=== PATIENT | male | born 1960 | race Asian ===

== ENCOUNTER 2019-11-10 17:06 | Inpatient (IN) | payer SELFPAY ==
[~2019-11-10] VITALS: Ht 175.3 cm; Wt 57.3 kg
[2019-11-10 17:22] VITALS: Ht 175.3 cm; Wt 57.3 kg
--- NOTE | 2019-11-10 21:05 | NUR ---
PT OFF OF UNIT TO CT SCAN.
[2019-11-10 21:15] LABS: PLATELET COUNT 133 x10^3mcL (130-400); RED CELL DISTRIBUTION WIDTH 12.7 % (11.5-14.5)
--- NOTE | 2019-11-10 21:15 | NUR ---
PT LYING IN BED, AAOX4 WITH C/O 4/10 GENERALIZED ABD PAIN WITH N/V X 1 DAY. PT DENIES ANY DIARRHEA/CONSTIPATION, FEVER, OR URINARY PROBLEMS AT THIS TIME. NO SIGNS OF DISTRESS.
[2019-11-10 21:17] LABS: BASOPHIL % 0 % (0-2)
[2019-11-10 21:23] LABS: CALCIUM 8.3 mg/dL (8.5-10.1); CARBON DIOXIDE 28.5 mmol/L (21-32); CHLORIDE SERUM 98 mmol/L (98-107); CREATININE SERUM 0.8 mg/dL (0.7-1.3); GFR1 > 60 mL/min; GLUCOSE SERUM 113 mg/dL (74-106); POTASSIUM SERUM 3.8 mmol/L (3.5-5.1); SODIUM SERUM 132 mmol/L (136-145)
[2019-11-10 21:27] LABS: ALBUMIN 3.5 g/dL (3.4-5.0); ALKALINE PHOSPHATASE 69 U/L (46-116); ALT/SGPT 33 U/L (16-63); AST/SGOT 22 U/L (15-37); LIPASE 74 IU/L (73-393)
--- NOTE | 2019-11-10 22:30 | NUR ---
PT ASSISTED TO [facility] FOR TRANSPORT TO [place].
[2019-11-10 22:33] LABS: microscopic required? NO
[2019-11-10 23:11] LABS: UA SPECIFIC GRAVITY <=1.005 (1.005-1.035); urine erythrocyte NEGATIVE (NEGATIVE)
[2019-11-10 23:34] LABS: AMPHETAMINE QUAL UR NONE DETECTED (See below)
[2019-11-10 23:42] VITALS: BP 124/100
--- NOTE | 2019-11-11 00:37 | NUR ---
RECEIVED REPORT FROM RECOVER NURSE. AWAITING PTS ARRIVAL.
--- NOTE | 2019-11-11 00:47 | NUR ---
RECEIVED PT FROM PACU, S/P LAPAROSCOPIC APPENDECTOMY. RECEIVED PT DROWSY BUT AROUSABLE W/ VERBAL STIMULI. ORIENTED X4. DENIES HEADACHE/DIZZINESS. ABLE TO FOLLOW COMMANDS. NO SOB NOTED, LUNG SOUNDS CTA, 02 SAT=98% ON 2LPM/NC. DENIES CHEST PAIN/PRESSURE. STATED THAT HE HAS 6/10 ABDOMINAL PAIN. DENIES NAUSEA/VOMITING. ABDOMEN IS SOFT. PT STATED THAT HE HAS MILD DIFFICULTY URINATING, DENIES DYSURIA. W/ 3 SURGICAL INCISIONS ON THE ABDOMEN, W/ DERMABONDS, CDI. IV SITE PATENT AND INTACT. TEMP-100.4. COOLING MEASURES INITIATED. PT'S FRIEND AT BEDSIDE. SIDE RAILS UPX2. CALL LIGHT ON REACH. ENDORSED TO PRIMARY NURSE LAI FOR CONTINUITY OF CARE
--- NOTE | 2019-11-11 00:50 | NUR ---
RECEIVED PT FROM CHATO ALMEIDA. PT IS DROWSY, BUT EASILY AROUSABLE. MANDARIN SPEAKING. ABLE TO MAKE NEEDS KNOWN AND FOLLOW COMMANDS. ORIENTED PT TO ROOM AND SURROUNDINGS. BED IN LOWEST POSITION. CALL LIGHT WITHIN REACH. WILL CONTINUE TO MONITOR.
[2019-11-11 00:55] VITALS: BP 119/73
--- NOTE | 2019-11-11 01:14 | NUR ---
TYLENOL ADMINISTERED FOR TEMP OF 100.4. WILL REASSESS AND CHECK EFFECTIVENESS.
--- NOTE | 2019-11-11 03:37 | NUR ---
PT RESTING COMFORTABLY IN BED, BUT EASILY AROUSABLE WHEN SPOKEN TO. PT C/O 05/16 PAIN ON ABD. WILL MEDICATE ACCORDINGLY PER DEC ORDER. BREATHING IS EVEN AND UNLABORED ON 2LNC. NO RESP DISTRESS NOTED. BED IN LOWEST POSITION. CALL LIGHT WITHIN REACH. WILL CONTINUE TO MONITOR.
[2019-11-11 05:26] VITALS: BP 98/54
--- NOTE | 2019-11-11 06:22 | NUR ---
DR LAUED IN TO SEE PT. PT HAD NO URINE OUTPUT SINCE BROUGHT UP FROM RECOVERY ROOM. PER DR ROMO PERFORM BLADDER SCAN TO DETERMINE URINE RETENTION. WILL CARRY OUT ORDERS.
[2019-11-11 06:35] LABS: RED CELL DISTRIBUTION WIDTH 12.8 % (11.5-14.5)
--- NOTE | 2019-11-11 06:49 | NUR ---
BLADDER SCAN DONE, 700+ML RETAINED. PAGED DR ROMO. AWAITING ORDERS. WILL MAKE DAY SHIFT NURSE AWARE.
--- NOTE | 2019-11-11 06:58 | NUR ---
PT SLEPT IN INTERVALS THROUGHOUT THE NIGHT AND COMPLIED WITH NURSING CARE WITH NO ACUTE EVENTS OCCURRING THROUGHOUT THE NIGHT. COMFORT AND SAFETY MEASURES MAINTAINED. ALL NEEDS ASSESSED AND ATTENDED TO. WILL CONTINUE TO MONITOR AND ENDORSE CARE TO DAY SHIFT NURSE.
--- NOTE | 2019-11-11 07:21 | NUR ---
RECEIVED REPORT FROM LAI ALMEIDA. PATIENT CURRENTLY ATTEMPTING TO URINATE WITH FAMILY FRIEND AT BEDSIDE. IV TO RAC IS PATENT AND INFUSING NS @ 100 ML/HR NO REDNESS OR PAIN. PT ON O2 2L NC. NO C/O SOB AND NO DISTRESS NOTED. ALL QUESTIONS AND CONCERNS ADDRESSED.
--- NOTE | 2019-11-11 07:55 | NUR ---
PT WAS ABLE TO URINATE ONLY 100 ML OF CLEAR YELLOW URINE.
[2019-11-11 08:05] LABS: BASOPHIL % 0 % (0-2); PLATELET COUNT 118 x10^3mcL (130-400)
[2019-11-11 08:30] LABS: CALCIUM 7.9 mg/dL (8.5-10.1); CARBON DIOXIDE 25.4 mmol/L (21-32); CHLORIDE SERUM 105 mmol/L (98-107); CREATININE SERUM 0.9 mg/dL (0.7-1.3); GFR1 > 60 mL/min; GLUCOSE SERUM 127 mg/dL (74-106); POTASSIUM SERUM 3.9 mmol/L (3.5-5.1); SODIUM SERUM 138 mmol/L (136-145)
[2019-11-11 08:33] LABS: MAGNESIUM 1.8 mg/dL (1.8-2.4); PHOSPHOROUS 3.2 mg/dL (2.5-4.9)
[2019-11-11 08:37] VITALS: BP 107/56
--- NOTE | 2019-11-11 08:55 | NUR ---
REPORT GIVEN TO DU ALMEIDA. ALL QUESTIONS AND CONCERNS ADDRESSED. ALL CARES ENDORSED.
--- NOTE | 2019-11-11 09:50 | NUR ---
DR. ROMO MADE AWARE PATIENT WAS ABLE TO VOID FREELY; 280ML YELLOW URINE NOTED. DR. ROMO STATED PATIENT DOES NOT NEED F/C. WILL CONTINUE TO MONITOR.
[2019-11-11 14:05] VITALS: BP 100/57
--- NOTE | 2019-11-11 14:10 | NUR ---
RT AT BEDSIDE FOR BREATHING TREATMENT. PATIENT VOIDED 450ML OF YELLOW URINE. CALL LIGHT WITHIN REACH, BED IN LOW POSITION, WILL CONTINUE TO MONITOR.
--- NOTE | 2019-11-11 14:30 | NUR ---
DR. ROMO MADE AWARE PT BLOOD CULTURE WAS GRAM NEG BACILLI. NO FURTHER ORDERS AT THIS TIME.
--- NOTE | 2019-11-11 17:11 | NUR ---
IVPB ABX GIVEN AT THIS TIME. PATIENT SITTING UP IN BED, WATCHING TV. FAMILY AT BEDSIDE. PATIENT DENIES PAIN AT THIS TIME. PATIENT REPORTS BURPING, DENIES PASSING GAS AND BM AT THIS TIME. ALL NEEDS MET AT THIS TIME, WILL CONTINUE TO MONITOR. CALL LIGHT WITHIN REACH.
[2019-11-11 18:16] VITALS: BP 110/64
--- NOTE | 2019-11-11 18:54 | NUR ---
PATIENT RESTING IN BED, NO ACUTE DISTRESS NOTED. PATIENT DENIES PAIN. DENIES SOB, ON ROOM AIR. NS IV INFUSING TO RAC AT 100ML/HR, IV SITE CDI&PATENT. ALL NEEDS MET AT THIS TIME, CALL LIGHT WITHIN REACH, BED IN LOW POSITION. WILL ENDORSE REPORT TO NIGHT RN.
--- NOTE | 2019-11-11 19:15 | NUR ---
DR. DONG GAVE TORB TO ADVANCE DIET TO [facility], IF PATIENT IS ABLE TO TOLERATE DIET, FLUIDS MAY BE DISCONTINUED, AND PATIENT MAY GO HOME WITH ABX PO X5 DAYS. ENDORSED REPORT TO JUAN PABLO HINKLE.
--- NOTE | 2019-11-11 19:15 | NUR ---
REPORT RECEIVED FROM DAY SHIFT RN. PATIENT WAS SEEN RESTING COMFORTABLY IN BED. NO DISTRESS NOTED. BREATHING EVEN AND UNLABORED ON ROOM AIR. NO SOB OR RESP DISTRESS NOTED. DENIES PAIN. DENIES CHEST PAIN/PALPITATIONS. DENIES N/V. ABD INSICION X3 COVERED W. DERMABOND. NO DRAINAGE NOTED. IV TO THE RAC INFUSING WELL. PATENT AND INTACT. NO REDNESS OR SWELLING NOTED. REPORTS PASSING GAS. NO BM YET POST SURGERY. COMFORT AND SAFETY MEASURES IN PLACE. BED IS LOCKED AND IN THE LOWEST POSITION. SIDE RAILS UP X2. CALL LIGHT IS WITHIN REACH. WILL CONTINUE TO MONITOR.
[2019-11-11 20:15] VITALS: BP 114/70
--- NOTE | 2019-11-12 02:02 | NUR ---
RESTING IN BED W/ EYES CLOSED. NO DISTRESS NOTED. BREATHING E/U ON ROOM AIR. NO SOB OR RESP DISTRESS NOTED. IVF INFUSING WELL. SAFETY MEASURES IN PLACE. NO S/S OF PAIN NOTED. CALL LIGHT IS WITHIN REACH. WILL CONTINUE TO MONITOR.
[2019-11-12 05:03] VITALS: BP 115/65
--- NOTE | 2019-11-12 06:50 | NUR ---
RESTED IN LONG INTERVALS THROUGHOUT THE NIGHT. NO ACUTE CHANGES NOTED. BREATHING E/U ON ROOM AIR. NO SOB NOTED. NO DISTRESS NOTED. IV INFUSING WELL. GOOD URINE OUTPUT 1050ML OF PALE URINE URINE. NO C/O PAIN. ALL NEEDS AND CONCERNS ADDRESSED. SAFETY MEASURES IN PLACE. CALL LIGHT IS WITHIN REACH. WILL ENDORSE CARE TO DAY SHIFT RN
--- NOTE | 2019-11-12 07:30 | NUR ---
RECEIVED PATIENT RESTING IN BED, NO ACUTE DISTRESS NOTED. PATIENT AAOX4, DENIES COX. PATIENT DENIES SOB, LUNG SOUNDS CTA. PATIENT REPORTS BURPING, NO BM NOTED AT THIS TIME. PT. REPORTS POOR APPETITE, BOWEL SOUNDS ACTIVEX4. PATIENT REPORTS ABDOMINAL DISCOMFORT 12/14 PATIENT STATES IT INCREASES WITH MOVEMENT. WILL MEDICATED PER PROTOCOL. PATIENT VOIDING FREELY I URINAL. NO GENERALIZED WEAKNESS NOTED. ABDOMINAL INCISION X3 WITH DERMABOND, CDI. NS IV INFUSING TO RAC AT 100ML/HR, IV SITE CDI&PATENT. CALL LIGHT WITHIN REACH, BED IN LOW POSITION, WILL CONTINUE TO MONITOR.
--- NOTE | 2019-11-12 08:25 | NUR ---
PATIENT REPORTED ABDOMINAL PAIN 01/14, PATIENT STATES PAIN INCREASES WITH MOVEMENT. MEDICATED PATIENT WITH TYLENOL PER PROTOCOL (SEE EMAR). CALL LIGHT WITHIN REACH, WILL CONTINUE TO MONITOR.
[2019-11-12 08:26] VITALS: BP 122/68
[2019-11-12 11:55] VITALS: BP 141/85
--- NOTE | 2019-11-12 12:50 | NUR ---
PATIENT WAS UP & AMBULATING HALLWAYS AT THIS TIME, STEADY GAIT NOTED. NO ACUTE DISTRESS NOTED, PATIENT DENIES SOB. DENIES PAIN. ALL NEEDS MET AT THIS TIME. WILL CONTINUE TO MONTIOR.
[2019-11-12 13:27] LABS: BASOPHIL % 0.2 % (0-2); RED CELL DISTRIBUTION WIDTH 13.1 % (11.5-14.5)
[2019-11-12 13:36] LABS: PLATELET COUNT 125 x10^3mcL (130-400)
[2019-11-12 16:08] VITALS: BP 155/83
--- NOTE | 2019-11-12 17:00 | NUR ---
PATIENT IS UP AND AMBULATING HALLWAYS, STEADY GAIT NOTED. NO ACUTE RESP DISTRESS NOTED. DENIES SOB, ON ROOM AIR. DENIES PAIN AT THIS THIS TIME. ALL NEEDS MET AT THIS TIME, WILL CNTINUE TO MONITOR.
--- NOTE | 2019-11-12 17:59 | NUR ---
PATIENT RESTING IN BED, NO ACUTE DISTRESS NOTED. PATIENT DENIES PAIN. PT REPORTS PASSING GAS, DENIES BM. DENIES SOB, ON ROOM AIR. FLAGYL INFUSING TO RAC, IV SITE CDI & PATENT. ALL NEEDS MET AT THIS TIME, CALL LIGHT WITHIN REACH, BED IN LOW POSITION, WILL CONTINUE TO MONITOR, AND ENDORSE REPORT TO NIGHT RN.
--- NOTE | 2019-11-12 19:45 | NUR ---
PT STATES THEY WANT TO LEAVE AMA DUE TO FINANCIAL CONSTRAINTS. I ASKED THE PT IF THEY WOULD WANT TO TALK TO THE BUSINESS AREA DIRECTOR ABOUT POSSIBILITY OF ASSISTANCE AND THEY REFUSED, THEY AGREED TO TALK TO THE DR FIRST ABOUT RISKS OF LEAVING.
--- NOTE | 2019-11-12 20:00 | NUR ---
DR VENEGAS IN TO TALK TO PT ABOUT RISKS OF LEAVING SAID HE WOULD WRITE PT A PRESCRIPTION FOR ANTIBIOTICS AND BUT THEY WOULD HAVE TO PAY OUT OF POCKET, THE PT AGREED.
--- NOTE | 2019-11-12 20:15 | NUR ---
PT STATED THEYRE READY TO LEAVE, PT IS STABLE, DENIES PAIN OR SOB, IV REMOVED, PT DRESSED, BELONGINGS WITH PT AND PT IS LEAVING WITH FAMILY MEMEBER NAMED BRIDGER.
== END 2019-11-12 20:25 | disposition left against medical advice (07) | DRG 854 ==
LOC: ED 17:06 → MU 22:04
PROVIDERS: Emergency Medicine; Surgery; ADMIT Internal Medicine
PROC: 0DTJ4ZZ Resection of Appendix, Percutaneous Endoscopic Approach (ICD-10-PCS; principal; 2019-11-10 22:30)
DX: A41.9 Sepsis, unspecified organism (principal); E87.1 Hypo-osmolality and hyponatremia; K35.891 Other acute appendicitis without perforation, with gangrene; J45.909 Unspecified asthma, uncomplicated; E11.65 Type 2 diabetes mellitus with hyperglycemia; D64.9 Anemia, unspecified; K59.00 Constipation, unspecified; E83.51 Hypocalcemia; I10 Essential (primary) hypertension; Z82.5 Family history of asthma and other chronic lower respiratory diseases; Z87.891 Personal history of nicotine dependence
CPT/HCPCS: 82962; 87804; 94150; G0378; J0330; J1956; J2175; J2250; J2270; J2405; J2543; J2704; J2710; J3010; J3490; J7030; J7620